=== PATIENT | female | born 1975 | race Caucasian/White ===

== ENCOUNTER → 2024-10-05 12:06 | Outpatient (CLI) | payer OTHER, SELFPAY ==
--- NOTE | 2024-10-05 12:13 | DI.MRI.S_ITS ---
PROCEDURE: MR BRAIN (PITUITARY) WWO CON INDICATIONS: PITUITARY gland TECHNIQUE: Noncontrast sagittal and axial FLAIR, axial gradient echo, axial diffusion and ADC through the brain. Thin-slice sagittal and coronal T1 spin echo, coronal T2 fast spin echo through the pituitary. After the administration contrast, optional dynamic coronal T1 spin echo, thin-slice coronal and sagittal T1 spin echo images through the pituitary fossa; axial and coronal and sagittal T1 spin echo with fat saturation through the brain. COMPARISON: None. FINDINGS: Image quality: Excellent. Pituitary Gland: The pituitary gland demonstrates normal signal and bulk. On the postcontrast imaging, no masses or abnormally enhancing areas are seen. The pituitary stalk and infundibulum have an unremarkable appearance. A normal appearing pituitary bright spot is seen posteriorly on the precontrast sagittal T1-weighted images. The optic chiasm and the ventral forebrain have an unremarkable appearance. CSF Spaces: Ventricles are normal in size and shape. Basal cisterns are patent. No extra-axial fluid collections. Brain: No intracranial bleeds or mass effects. No abnormal intracranial enhancement. [place]-white matter interface is intact. Diffusion weighted images demonstrate no acute ischemic insults. Brainstem is normal. Normal intravascular flow voids are present. Skull and face: Calvarial marrow is normal in signal. Orbits appear normal. Sinuses: Sinuses and mastoids are clear. IMPRESSION: Normal pituitary. No masses or abnormal enhancement can be seen. Dictated by: Rufino Aguilar M.D. on 10/05/2024 at 16:29 Approved by: Rufino Aguilar M.D. on 10/05/2024 at 16:31
== END ==
PROVIDERS: PCP Physician Assistant; Visit Provider Nurse Practitioner Family
DX: E23.6 Other disorders of pituitary gland (principal)
CPT/HCPCS: 70553; A9579